=== PATIENT | female | born 1980 | race Caucasian/White ===

== ENCOUNTER → 2019-04-02 | Outpatient (CLI) | payer BC ==
--- NOTE | 2019-04-02 12:16 | RAD ---
CT of the paranasal sinuses without contrast 04/02/2019 HISTORY: Possible sinusitis. Ear pain COMPARISON: None Technique: Multidetector CT imaging of the paranasal sinuses performed without contrast. FINDINGS: Visualized structures of the globes and orbits are unremarkable. The bony orbit is grossly intact. No fractures are seen. Probable mucosal retention cysts noted within the inferior right maxillary sinus. Visualized paranasal sinuses and mastoid air cells are otherwise clear. Specifically, no evidence of mucoperiosteal thickening or air fluid level is identified. Osteomeatial units are patent bilaterally. No significant facial soft tissue swelling is identified. Temporomandibular joints are within normal limits. Visualized intracranial contents are within normal limits. IMPRESSION: 1. No evidence of acute or chronic sinusitis 2. Likely small mucous retention cyst, inferior right maxillary sinus CT DOSING PQRS STATEMENT: One or more of the following individualized dose reduction techniques were utilized for this examination: 1. Automated exposure control 2. Adjustment of the mA and/or kV according to patient size 3. Use of iterative reconstruction technique Electronically signed by: Manuel Aparicio MD (04/02/2019 12:13 PM) [id number]
== END | disposition home or self-care (01) ==
LOC: CT 10:52
PROVIDERS: ATTEND Internal Medicine
DX: J34.89 Other specified disorders of nose and nasal sinuses (principal); J32.9 Chronic sinusitis, unspecified
CPT/HCPCS: 70486